=== PATIENT | female | born 1965 | race Caucasian/White ===

== ENCOUNTER 2018-10-18 08:00 | Day surgery (SDC) | payer OTHER ==
[~2018-10-18] VITALS: Ht 167.6 cm; Wt 90.3 kg
[~2018-10-18 08:00] MED LIST: CLARITIN10 MG PO; CYCLOBENZAPRINE10 MG PO; LISINOPRIL10 MG PO; NAPROSYN500 MG PO; PRILOSEC40 MG PO; SYNTHROID50 MCG PO
--- NOTE | 2018-10-18 08:16 | NUR ---
PT IS SOFT-SPOKEN, ALERT AND WILL BE JOINED BY HER SOON. PT THANKED ME FOR COMING IN, I EXTENDED A BLESSING. WILL FOLLOW NEEDED
--- NOTE | 2018-10-18 10:50 | NUR ---
10/18/18 1050 Belkis Tapia 1037 PT ARRIVED IN PACU SLEEPY WITH NO C/O'S. BUTTON AT END OF NOSE WITH SCANT DRAINAGE, DRIP PAD CDI. 1045 OXYGEN REMOVED. 94-96% ON 6L BLOW BY VIA MASK. ANESTHESIA AT BEDSIDE GIVING METOPROLOL FOR ELEVATED BP.
--- NOTE | 2018-10-18 11:16 | NUR ---
1110 PT BACK TO ROOM FROM PACU DENIES PAIN OR NAUSEA. PT TAKING SMALL SIPS OF WATER TOLERATES WELL.
[2018-10-18] MEDS ORDERED: KEFLEX500 MG PO ×2 (12:32→12:33)
[2018-10-18] MEDS ORDERED: NORCO 5-325 TA1 EACH PO (12:33)
--- NOTE | 2018-10-18 12:58 | NUR ---
1235) PATIENT ABLE TO WALK TO BATHROOM AND URINATE , WALK BACK AND GET SRESSED WITHOUT TROUBLE. NO BLEEDING NORED.
--- NOTE | 2018-10-18 15:48 | OR ---
[facility] [address], [place] [address] Signed DATE OF OPERATION: 10/18/2018 SURGEON: Jaylan Mercado MD PREOPERATIVE DIAGNOSES: Septal deformity and inferior turbinate hypertrophy. POSTOPERATIVE DIAGNOSES: Septal deformity and inferior turbinate hypertrophy. PROCEDURE PERFORMED: Septoplasty cautery, bilateral inferior turbinates. ANESTHESIA: General LMA; Elia KEMP. PREOPERATIVE HISTORY: Gladys is a 53-year-old lady with a long history of nasal obstruction, allergy symptoms, drainage, snoring, septal deformity, and inferior turbinate hypertrophy identified in the office. This has been unresponsive to nasal steroid sprays, clear antihistamines, decongestants, etc. She was taken to the operating room for the above-mentioned procedures. PROCEDURE AND FINDINGS: After informed consent, the patient was taken to the operating room, placed in supine position where general LMA anesthesia was induced. The patient and procedure were verified. The patient received preoperative intranasal oxymetazoline and intravenous Ancef. Headlight speculum exam of the nasal cavity showed a significant septal deformity on the left with a large spur inferiorly impinging on the inferior turbinate extending back posteriorly. The septal mucosa was injected with 1% lidocaine with epi. Mucosa elevated off the deviated septal bone and cartilage in this deviation was removed with the Edwina. Airway was markedly improved in this manner. The inferior turbinates were then cauterized with a long handle needle point cautery starting on the right inferior turbinate, multiple passes, transmucosal, on the medial and inferior surface extending anteriorly all the way back posteriorly. Excellent decongestion and shrinkage of the turbinate were obtained in this manner. Same procedure on the left inferior turbinate. Bleeding was controlled. Packing was placed. Trimmed Merocel equal amount on each side, coated with Neosporin tied anteriorly over a pad. The pharynx was suctioned clear of blood secretions. The patient was then Electronically Signed By: JAYLAN MERCADO MD 10/18/18 1548 PATIENT NAME: MARIE TALBERT XIMENA OPERATIVE REPORT DATE OF : 61 REPORT #: [id number] PHYSICIAN: JAYLAN MERCADO MD PCP: KELVIN CHAMBESR PAC REPORT IS CONFIDENTIAL AND NOT TO BE RELEASED WITHOUT AUTHORIZATION [address] [place], [place] [address] Signed awakened, extubated, transported to recovery room in good condition. No complications. BLOOD LOSS: Minimal. SPECIMEN: No specimen. DRAINS: No drains. Packing one piece of Merocel each nostril. Jaylan Mercado MD GC/MODL /[id number] Copies: ~ Electronically Signed By: JAYLAN MERCADO MD 10/18/18 1548 PATIENT NAME: MARIE TALBERT OPERATIVE REPORT DATE OF : 61 REPORT #: [id number] PHYSICIAN: JAYLAN MERCADO MD PCP: KELVIN CHAMBERS PAC REPORT IS CONFIDENTIAL AND NOT TO BE RELEASED WITHOUT AUTHORIZATION
== END 2018-10-18 12:35 | disposition home or self-care (01) ==
LOC: DS 08:00 → OPS 08:00 → DS 09:45 → OPS 09:45
PROVIDERS: Otolaryngology
PROC: 09SM0ZZ Reposition Nasal Septum, Open Approach (ICD-10-PCS; principal; 2018-10-18 09:45)
PROC: 095L7ZZ Destruction of Nasal Turbinate, Via Natural or Artificial Opening (ICD-10-PCS; 2018-10-18 09:45)
DX: J34.2 Deviated nasal septum (principal); J34.3 Hypertrophy of nasal turbinates; K21.9 Gastro-esophageal reflux disease without esophagitis; I10 Essential (primary) hypertension; F41.9 Anxiety disorder, unspecified; H54.7 Unspecified visual loss; Z79.899 Other long term (current) drug therapy
CPT/HCPCS: 00160; J0330; J0690; J1100; J1885; J2250; J2405; J2704; J2765; J3010; J7120

== ENCOUNTER 2023-03-09 07:50 | Day surgery (SDC) | payer OTHER | END 2023-03-09 12:00 | disposition home or self-care (01) | LOC: DS 07:50 | PROC: 099600Z Drainage of Left Middle Ear with Drainage Device, Open Approach (ICD-10-PCS; principal; 2023-03-09) | DX: H90.2 Conductive hearing loss, unspecified (principal); H65.92 Unspecified nonsuppurative otitis media, left ear; E03.9 Hypothyroidism, unspecified; I10 Essential (primary) hypertension ==

== ENCOUNTER 2023-05-21 08:15 | Day surgery (SDC) | payer OTHER ==
[~2023-05-21] VITALS: Ht 167.6 cm; Wt 98.6 kg
[~2023-05-21 08:15] MED LIST changes: +COLESTID1 GM PO; +KEFLEX500 MG PO; +NORCO 5-325 TA1 EACH PO
[2023-05-21 08:28] VITALS: BP 154/84
--- NOTE | 2023-05-21 10:22 | NUR ---
05/21/23 1022 Isadora Lund 1011- PT ARRIVES TO PACU, LEFT LATERAL POSITION. LR INFUSING TO RH IV, O2 AT 2L PER NC. PT REACTIVE AND OPENS EYES BUT FALLS BACK TO SLEEP QUICKLY. DENIES NAUSEA, REPORTS ABD PRESSURE. ABD ROUND, FIRM, ENCOURAGED TO REST AND PASS GAS. ALL MONITORS IN PLACE.
[2023-05-21 11:07] VITALS: BP 121/55
--- NOTE | 2023-05-24 15:08 | OR ---
[facility] [address] [place], [place] [address] Signed DATE OF OPERATION: 05/21/2023 SURGEON: Arpit Sheppard MD PREOPERATIVE DIAGNOSES: 1. Intractable persistent worsening diarrhea. 2. Known acalculous cholecystitis. 3. Resolving upper respiratory infection. POSTOPERATIVE DIAGNOSIS: Normal-appearing colon and ileum except for two very small polyps (cecum and left colon). PROCEDURES: 1. Total colonoscopy to cecum with intubation of ileum and biopsy of ileum, cecum, transverse colon, left colon, sigmoid, and rectum. 2. Excision of small polyps x2. ANESTHESIA: Intravenous sedation, fentanyl 100 mcg and Versed 7 mg. INDICATIONS FOR THE PROCEDURE: This 57-year-old woman is a patient of Kelvin Chambers and has been bothered by persistent and even worsening diarrhea over the past number of months. She was empirically treated with colestipol with some benefit, but not complete resolution. She additionally has rather typical biliary colic symptoms. Her evaluation shows normal gallbladder and CCK-HIDA test showed essentially no ejection fraction. She has had an upper respiratory infection over the past week and a half, which is now resolving; she was treated with Zithromax Z-Genaro by me, which is markedly improving her symptoms currently. It is anticipated to undergo cholecystectomy in the near future for acalculous cholecystitis. As regard to diarrhea, which surely would not be improved by cholecystectomy and maybe even worsened by it, I have recommended colonoscopy. She did undergo colonoscopy in 2017, which was normal. She has no family history of colon cancer. Assessment for possible colitis, neoplasm, or occult colitis has been considered, and on that basis she is here today for colonoscopy. The risk of bleeding, infection, perforation, and other unforeseen complications was reviewed with her. She understands and wished to proceed. FINDINGS: The prep was excellent. Complete colonoscopy was undertaken of the cecum. Full Electronically Signed By: ARPIT SHEPPARD MD 05/21/23 1150 Electronically Signed By: ARPIT SHEPPARD MD 05/25/23 2110 PATIENT NAME: MARIE TALBERT OPERATIVE REPORT DATE OF : 61 REPORT #: [id number] PHYSICIAN: ARPIT SHEPPARD MD PCP: KELVIN CHAMBERS PAC REPORT IS CONFIDENTIAL AND NOT TO BE RELEASED WITHOUT AUTHORIZATION [facility] [address] [place], [place] [address] Signed intubation of the ileum was accomplished as well. The ileum appeared normal. The biopsies were obtained. The remaining colon was normal except for two very small polyps, one in the cecum and another in the left colon, both excised with cold morcellation technique. Biopsies were taken throughout to assess for occult colitis as there is certainly no overt colitis and certainly no diverticular problems. DESCRIPTION OF PROCEDURE: The patient was brought to the endoscopy suite and placed in lateral decubitus position given intravenous sedation to the point of slurred speech and nystagmus. Digital rectal examination was normal. An Olympus video colonoscope was passed into the rectum and manipulated throughout the colon noting a very good prep. The scope was ultimately advanced to the cecum. Biopsies were taken of the cecum and additional evaluation showed a very small polyp there, which was excised with cold morcellation technique as well. With various manipulations of the scope, the ileocecal valve was entered and the terminal ileum well evaluated for at least 5+ cm. Mucosa appeared normal without ulcerations or other abnormality. Biopsies were obtained to assure this. Scope was withdrawn and passage upon withdrawal of scope throughout the colon allowed for random biopsies including the cecum, transverse colon, left colon, sigmoid, and rectum. Additionally noted was a very small polyp of the proximal descending colon, which was excised with cold morcellation technique. Retroflexed view was normal. She was taken to the recovery room in good condition. CONCLUDING DIAGNOSES: 1. No overt signs of colitis or ileitis. 2. Two small polyps, not related to her diarrhea problem. PLAN: We are planning for cholecystectomy next week. She will finish Zithromax Z-Genaro second course regarding her upper respiratory infection, which is now resolving well, and we will also prescribe empirically loperamide 2 mg tablets three tablets p.o. b.i.d. pending results of biopsies of the colon. Arpit Sheppard MD /[facility] [place] [place] /[id number] Electronically Signed By: ARPIT SHEPPARD MD 05/21/23 1150 Electronically Signed By: ARPIT SHEPPARD MD 05/25/23 2110 PATIENT NAME: MARIE TALBERT OPERATIVE REPORT DATE OF : 61 REPORT #: [id number] PHYSICIAN: ARPIT SHEPPARD MD PCP: KELVIN CHAMBERS PAC REPORT IS CONFIDENTIAL AND NOT TO BE RELEASED WITHOUT AUTHORIZATION [address] [address] Signed cc: AUGIE Trevino Copies: ~ Electronically Signed By: ARPIT SHEPPARD MD 05/21/23 1150 Electronically Signed By: ARPIT SHEPPARD MD 05/25/23 2110 PATIENT NAME: MARIE TALBERT XIMENA OPERATIVE REPORT DATE OF : 61 REPORT #: [id number] PHYSICIAN: ARPIT SHEPPARD MD PCP: KELVIN CHAMBERS PAC REPORT IS CONFIDENTIAL AND NOT TO BE RELEASED WITHOUT AUTHORIZATION
--- NOTE | 2023-05-25 10:12 | PATH ---
[facility] [address] [facility] [place], [place] [address] Signed SPECIMEN(S): A CECUM BIOPSY SPECIMEN(S): B CECUM POLYP SPECIMEN(S): C TERMINAL ILEUM BIOPSY SPECIMEN(S): D TRANSVERSE BIOPSY SPECIMEN(S): E DESCENDING POLYP SPECIMEN(S): F SIGMOID BIOPSY SPECIMEN(S): G RECTUM BIOPSY SPECIMEN SOURCE: A. CECUM BIOPSY B. CECUM POLYP C. TERMINAL ILEUM BIOPSY D. TRANSVERSE BIOPSY E. DESCENDING POLYP F. SIGMOID BIOPSY G. RECTUM BIOPSY CLINICAL HISTORY: Diarrhea. Two small polyps. FINAL PATHOLOGIC DIAGNOSIS: A. Cecum, biopsy: - Colonic mucosa with no significant pathologic changes B. Cecum, polypectomy: - Tubular adenoma C. Terminal ileum, biopsy: - Small bowel mucosa with focal active enteritis D. Colon, transverse, biopsy: - Colonic mucosa with no significant pathologic changes E. Colon, descending, polypectomy: - Colonic mucosa with no significant pathologic changes F. Colon, sigmoid, biopsy: - Colonic mucosa with no significant pathologic changes G. Rectum, biopsy: - Nondiagnostic; no specimen submitted, see gross description BRP MICROSCOPIC EXAMINATION: Histologic sections of all submitted blocks are examined by light microscopy. These findings, together with the gross examination, support the pathologic diagnosis. PATIENT NAME: MARIE JULES PATHOLOGY DATE OF : 61 REPORT #: [id number] PHYSICIAN: CONCEPCION DALTON PCP: KELVIN CHAMBERS PAC REPORT IS CONFIDENTIAL AND NOT TO BE RELEASED WITHOUT AUTHORIZATION [facility] [address] [place], [place] [address] Signed GROSS DESCRIPTION: A. The specimen, labeled and designated "Neal Jules, " and designated on the requisition "colon, cecum biopsy," is received in formalin and consists of two penaloza soft tissue fragments measuring 0.3 to 0.4 cm, both specimens are submitted entirely in (A1). B. The specimen, labeled and designated "Neal Jules, " and designated on the requisition "colon, cecum polypectomy," is received in formalin and consists of one penaloza soft tissue fragment measuring 0.5 cm, the specimen is submitted entirely in (B1). C. The specimen, labeled and designated "Neal Jules, " and designated on the requisition "ileum, terminal ileum biopsy," is received in formalin and consists of two penaloza soft tissue fragments measuring 0.2 to 0.3 cm, both specimens are submitted entirely in (C1). D. The specimen, labeled and designated "Neal Jules, " and designated on the requisition "colon, transverse biopsy," is received in formalin and consists of one penaloza soft tissue fragment measuring 0.4 cm, the specimen is submitted entirely in (D1). E. The specimen, labeled and designated "Neal Jules, " and designated on the requisition "colon, descending/left polypectomy," is received in formalin and consists of two penaloza soft tissue fragments measuring 0.3 cm, both specimens are submitted entirely in (E1). F. The specimen, labeled and designated "Jorge A, Neal, " and designated on the requisition "colon, sigmoid biopsy," is received in formalin and consists of two penaloza soft tissue fragments measuring 0.2 to 0.3 cm, both specimens are submitted entirely in (F1). G. The specimen, labeled and designated "Jorge A Neal, " and designated on the requisition "colon, rectum biopsy," is received in formalin and consists of formalin with no tissue or specimens, verified with providers staff/office per Laura 05-24-2023. MMA (under the direct supervision of a pathologist) The Gross Description was prepared using a voice recognition system. The report was reviewed for accuracy; however, sound-alike word errors, addition and/or deletions may occur. If there is any question about this report, please contact Client Services. ADDITIONAL NOTES: Immunohistochemical and/or in situ hybridization studies if performed in this case included appropriate positive controls that reacted as expected. This test was developed and its performance PATIENT NAME: MARIE JULES PATHOLOGY DATE OF : 61 REPORT #: [id number] PHYSICIAN: CONCEPCION DALTON PCP: KELVIN CHAMBERS PAC REPORT IS CONFIDENTIAL AND NOT TO BE RELEASED WITHOUT AUTHORIZATION [address] [address] Signed characteristics determined by [facility]. It has not been cleared or approved by the U.S. Food and Drug Administration. The FDA has determined that such clearance or approval is not necessary. This test is used for clinical purposes. It should not be regarded as investigational or for research. [facility] is certified under the Clinical Laboratory Improvement Amendments of 1988 (CLIA) as qualified to perform high complexity clinical laboratory testing. PERFORMING LABORATORY: Technical component was performed by [facility], [address] [place] [id number] (CLIA# [id number]). Professional interpretation was performed by [employer] [facility] - [facility], [address] [place] [id number] (CLIA#: [id number]). Diagnostician: Calixto Blake MD Pathologist Electronically Signed 05/25/2023 Copies: ~ PATIENT NAME: MARIE JULES PATHOLOGY DATE OF : 61 REPORT #: [id number] PHYSICIAN: CONCEPCION DALTON PCP: KELVIN CHAMBERS PAC REPORT IS CONFIDENTIAL AND NOT TO BE RELEASED WITHOUT AUTHORIZATION
== END 2023-05-21 11:20 | disposition home or self-care (01) ==
LOC: OPS 08:15 → DS 08:15 → OPS 09:30
PROVIDERS: ATTEND Surgery
PROC: 0DBL8ZX Excision of Transverse Colon, Via Natural or Artificial Opening Endoscopic, Diagnostic (ICD-10-PCS; 2023-05-21)
PROC: 0DBN8ZX Excision of Sigmoid Colon, Via Natural or Artificial Opening Endoscopic, Diagnostic (ICD-10-PCS; 2023-05-21)
PROC: 0DBP8ZX Excision of Rectum, Via Natural or Artificial Opening Endoscopic, Diagnostic (ICD-10-PCS; 2023-05-21)
PROC: 0DBG8ZX Excision of Left Large Intestine, Via Natural or Artificial Opening Endoscopic, Diagnostic (ICD-10-PCS; 2023-05-21)
PROC: 0DBH8ZX Excision of Cecum, Via Natural or Artificial Opening Endoscopic, Diagnostic (ICD-10-PCS; principal; 2023-05-21 09:30)
DX: K52.9 Noninfective gastroenteritis and colitis, unspecified (principal); D12.0 Benign neoplasm of cecum; K81.1 Chronic cholecystitis; Z90.711 Acquired absence of uterus with remaining cervical stump
CPT/HCPCS: 99153; G0500; J2250; J3010; J7121

== ENCOUNTER 2023-05-27 07:45 | Day surgery (SDC) | payer OTHER ==
[2023-05-20 09:43] VITALS: BP 134/79
[~2023-05-27] VITALS: Ht 167.6 cm; Wt 98.6 kg
[~2023-05-27 07:45] MED LIST changes: +CEFAZOLIN SODIUM 2 GM/20 ML SYR IV SCH; +HEParin SOD (PORCINE) 5,000 UNIT/0.5 ML SYR SUB-Q SCH; +IBLOOD GLUCOSE TEST STRIP 1 EA TEST VI PRN; +LACTATED RINGER'S 1,000 ML IV SCH; +LIDOCAINE HCL 1% 5 ML SDV INJ ONE
[2023-05-27 08:05] VITALS: BP 132/70
--- NOTE | 2023-05-27 08:19 | NUR ---
INFORMED OF WAITSTATES OK . AT BS.
[2023-05-27] MEDS ORDERED: SODIUM CHLORIDE 0.9% 40 ML IV ONE ×2 (09:06→09:25)
[2023-05-27] MEDS ORDERED: iopamidoL 30 ML VIAL ONE (09:06)
[2023-05-27] MEDS ORDERED: fentaNYL citrate 100 MCG/2 ML VIAL ONE (09:22)
[2023-05-27] MEDS ORDERED: KETAMINE in NS 50 MG/5 ML SYR ONE (09:22)
--- NOTE | 2023-05-27 09:24 | NUR ---
can vacuum tester in to talk with pt and dr iniguez.
[2023-05-27] MEDS ORDERED: DEXAMETHASONE SOD PHOS 4 MG/ML VIAL ONE (09:25)
[2023-05-27] MEDS ORDERED: ACETAMINOPHEN 1,000 MG/100 ML VIAL ONE (09:25)
[2023-05-27] MEDS ORDERED: MAGNESIUM SULFATE 1 GM/2 ML VIAL ONE (09:25)
[2023-05-27] MEDS ORDERED: propofoL 200 MG/20 ML VIAL ONE (09:25)
[2023-05-27] MEDS ORDERED: ROCURONIUM BROMIDE 50 MG/5 ML SYR ONE (09:25)
[2023-05-27] MEDS ORDERED: dexmedeTOMIDine HCl 200 MCG/2 ML VIAL ONE (09:25)
[2023-05-27] MEDS ORDERED: LIDOCAINE HCL 2% 5 ML SDV ONE (09:25)
[2023-05-27] MEDS ORDERED: ondansetron HCL 4 MG/2 ML VIAL ONE (09:25)
[2023-05-27] MEDS ORDERED: ePHEDrine sulfate 50 MG/ML AMP ONE (10:27)
[2023-05-27] MEDS ORDERED: SUGAMMADEX SODIUM 200 MG/2 ML ML ONE (10:30)
[2023-05-27] MEDS ORDERED: IBLOOD GLUCOSE TEST STRIP 1 EA TEST VI PRN (10:45)
[2023-05-27] MEDS ORDERED: droPERidol 5 MG/2 ML VIAL IV PRN (10:45)
[2023-05-27] MEDS ORDERED: ondansetron HCL 4 MG/2 ML VIAL IV PRN ×2 (10:45→11:15)
[2023-05-27] MEDS ORDERED: fentaNYL citrate 100 MCG/2 ML VIAL IV PRN (10:45)
[2023-05-27] MEDS ORDERED: KETOROLAC TROMETHAMINE 30 MG/ML VIAL IV PRN (10:45)
[2023-05-27] MEDS ORDERED: NALOXONE HCL 0.4 MG SYR IV PRN (10:45)
[2023-05-27] MEDS ORDERED: IBUPROFEN600 MG PO (11:15)
[2023-05-27] MEDS ORDERED: OXYCODONE/APAP 7.5/325 TAB PO PRN (11:15)
[2023-05-27] MEDS ORDERED: ACETAMINOPHEN 500 MG TAB PO PRN (11:15)
[2023-05-27] MEDS ORDERED: OXYCODON-ACETA1 EAC2 PO (11:15)
[2023-05-27] MEDS ORDERED: PROCHLORPERAZINE EDISYLATE 10 MG/2 ML VIAL IV PRN (11:15)
[2023-05-27] MEDS ORDERED: IBUPROFEN 600 MG TAB PO PRN (11:15)
[2023-05-27] MEDS ORDERED: ACETAMINOPHEN500 MG PO (11:15)
[2023-05-27] MEDS ORDERED: HYDROmorphone HCL 1 MG/ML SYR IV PRN (11:30)
[2023-05-27 11:57] VITALS: BP 119/56
--- NOTE | 2023-05-27 12:04 | NUR ---
HAS TAKEN WATER AND CRACKERS AND REQUESTED 2 PAIN PILLS. GIVEN RATES PAIN 5/10
--- NOTE | 2023-05-27 12:46 | NUR ---
05/27/23 1246 KevonIsadora Sara 1059- PT ARRIVES TO PACU, SEMI COLEMAN POSITION. HER ARMS PULLED UP TO HEAD, O2 AT 8L PER MASK. LR INFUSING TO RH IV. PT IS REACTIVE, MOANING AND GRUNTING IN PAIN. REPORTS "A LOT" OF PAIN. ABD IS ROUND, DISTENDED, AND FIRM. STERI STRIPS IN PLACE. BREATHING EVEN AND NON LABORED. ALL MONITORS IN PLACE.
[2023-05-27 12:54] VITALS: BP 100/61
--- NOTE | 2023-05-27 12:56 | NUR ---
CONTS TO DISTENDED ABD FIRM. ENC TO AMB.
--- NOTE | 2023-05-27 13:11 | NUR ---
AMB HALLWAY. VOIDS 200MLS DARK YELLOW URINE. RETURNED TO BED GETTING DRESSED. ABD STILL FIRM DR SHEPPARD INFORMED OK TO DC HOME.
--- NOTE | 2023-05-27 13:22 | NUR ---
ON RETURN TO ROOM SAT 93% ON ROOM AIR.
--- NOTE | 2023-06-01 10:00 | OR ---
[facility] [address] [place], [place] [address] Signed DATE OF OPERATION: 05/27/2023 SURGEON: Arpit Sheppard MD PREOPERATIVE DIAGNOSES: 1. Chronic acalculous cholecystitis. 2. Morbid obesity. POSTOPERATIVE DIAGNOSES: 1. Chronic calculous cholecystitis with profound cholesterolosis. 2. Morbid obesity. 3. Extensive adhesions to gallbladder. PROCEDURES: 1. Laparoscopic cholecystectomy, prolonged, complicated and difficult. 2. Surgeon-directed fluoroscopy. ANESTHESIA: General endotracheal, Raoul Benítez, [employer] and local 12 mL of 0.25% Marcaine with epinephrine. INDICATION: This 57-year-old morbidly obese white woman is a patient of Kelvin Chambers. She has had a rather typical biliary colic symptoms. A gallbladder ultrasound was negative and a CCK-HIDA test was performed which showed essentially no ejection fraction from the gallbladder. There was considered to be a 5 mm gallbladder wall polyp on the ultrasound, which nearly always represents a stone rather than a polyp in fact. The patient additionally has had diarrhea for the preceding year and recent colonoscopy was performed which did show focal acute inflammation of the terminal ileum for which additional imaging is planned. She is now to undergo cholecystectomy for chronic acalculous cholecystitis. She understands the risk of bleeding, infection, bile duct injury, need for open procedure and need for other indicated procedures. Understanding that she wished to proceed. FINDINGS: The gallbladder was chronically inflamed and densely adherent to underlying omentum. A fair amount of time was taken freeing the gallbladder for its exposure. The gallbladder itself was friable and chronically inflamed. The gallbladder once excised confirmed profound cholesterolosis of mucosa and multiple bits of stone material and an adherent gallstone that was yellow and mulberry in configuration. The cholangiogram was normal. Electronically Signed By: ARPIT SHEPPARD MD 06/01/23 1000 PATIENT NAME: MARIE TALBERT OPERATIVE REPORT DATE OF : 61 REPORT #: [id number] PHYSICIAN: ARPIT SHEPPARD MD PCP: KELVIN CHAMBERS PAC REPORT IS CONFIDENTIAL AND NOT TO BE RELEASED WITHOUT AUTHORIZATION [facility] [address] [place], [place] [address] Signed There were no other findings of concern. DESCRIPTION OF PROCEDURE: The patient was brought to the operating room, given a general endotracheal anesthetic. Preoperative antibiotic Ancef was given and sequential compression device stockings were applied. The abdomen was prepared with a chlorhexidine solution and draped sterilely. An infraumbilical incision was made and using an open Noemí cannula technique pneumoperitoneum was achieved to a level of 14 mmHg of carbon dioxide gas. Intra-abdominal inspection showed no sign of ascites or carcinomatosis. The gallbladder was somewhat obscured due to omental adhesions. The liver was reasonably normal with only mild fatty infiltration. Three additional trocars were placed in usual configuration in subxiphoid, right acromioclavicular and right anterior axillary line. Gallbladder was elevated and found to be densely adherent with omental adhesions. Using blunt electrocautery dissection. Extensive adhesiolysis was undertaken to free the omentum from the gallbladder itself. Ultimately, the gallbladder was entirely freed and showed chronic inflammatory changes and thickening. The gallbladder was elevated cephalad and retracted laterally. Using blunt and electrocautery dissection, the triangle of Calot was dissected free. A relatively generous inflammatory lymph node was noted and left in situ, ultimately identifying well the cystic duct. A small rent was made in the superior aspect of the gallbladder with spillage of bile but no spillage of stone material. This area was secured with an Endoloop. Further definition of the cystic duct was undertaken and a clip was applied across gallbladder cystic duct junction and a transverse choledochotomy made in the cystic duct. Egress of somewhat mucoid bile was noted. Using the Slaughter type cholangiocatheter system, intraoperative cholangiography was undertaken showing free flow of contrast in biliary tree with prompt emptying into the duodenum. There was no sign of filling defect or other abnormality. The catheter was removed and the cystic duct was triply clipped and divided. The gallbladder was then dissected free in a retrograde fashion leaving the thickened pericholecystic lymph node and cystic arterial branches in situ. The gallbladder was ultimately excised and placed in an endobag and extracted through the infraumbilical port site without problem, opened on the back table and found to have profound cholesterolosis, bits of stone material adherent to the gallbladder wall and chronic inflammatory change as expected. Irrigation was undertaken in the subhepatic space showing no sign of bile leak, bleeding or other problems. Excess irrigation fluid was suctioned free. The trocars were removed under direct visualization showing no sign of bleeding. The infraumbilical fascial incision was reapproximated with interrupted 0 Vicryl suture. All wounds were copiously irrigated with saline solution. Skin closed with interrupted 3-0 Vicryl after application of 12 mL of 0.25% Marcaine with epinephrine. Steri-Strips were applied. She was ultimately extubated and transferred to the recovery room in good condition having suffered no complication. Sponge, needle, and instrument counts were reported as correct x3. Electronically Signed By: ARPIT SHEPPARD MD 06/01/23 1000 PATIENT NAME: MARIE TALBERT XIMENA OPERATIVE REPORT DATE OF : 61 REPORT #: [id number] PHYSICIAN: ARPIT SHEPPARD MD PCP: KELVIN CHAMBERS PAC REPORT IS CONFIDENTIAL AND NOT TO BE RELEASED WITHOUT AUTHORIZATION [address] [place] [address] Signed MD SAMIR Enrique/[facility] /[id number] cc: AUGIE Trevino Copies: ~ Electronically Signed By: ARPIT SHEPPARD MD 06/01/23 1000 PATIENT NAME: MARIE TALBERT OPERATIVE REPORT DATE OF : 61 REPORT #: [id number] PHYSICIAN: ARPIT SHEPPARD MD PCP: KELVIN CHAMBERS PAC REPORT IS CONFIDENTIAL AND NOT TO BE RELEASED WITHOUT AUTHORIZATION
--- NOTE | 2023-06-01 11:21 | PATH ---
[facility] [address], [place] [address] Signed SPECIMEN(S): A GALLBLADDER AND STONES SPECIMEN SOURCE: A. GALLBLADDER AND STONES CLINICAL HISTORY: Chronic cholecystitis. FINAL PATHOLOGIC DIAGNOSIS: Gallbladder, cholecystectomy: - Chronic cholecystitis BRP MICROSCOPIC EXAMINATION: Histologic sections of all submitted blocks are examined by light microscopy. These findings, together with the gross examination, support the pathologic diagnosis. GROSS DESCRIPTION: The specimen, labeled and designated "Neal Jules " and designated on the requisition "gallbladder and stones," is received in formalin and consists of Specimen: Previously opened gallbladder. Dimensions: 7.4 x 4.6 x 1.0 cm. Serosa: Blue-green and smooth. Cystic Duct: Inked, probed patent. Calculi: Not grossly identified. Mucosa: Green and velvety with yellow polypoid soft tissue fragments. Wall thickness: 0.9 cm. Lymph node: No pericystic lymph nodes are grossly identified. Additional: None. Rn Baby sections are submitted in (A1). FB (under the direct supervision of a pathologist) The Gross Description was prepared using a voice recognition system. The report was reviewed for accuracy; however, sound-alike word errors, addition and/or deletions may occur. If there is any question about this report, please contact Client Services. ADDITIONAL NOTES: Immunohistochemical and/or in situ hybridization studies if performed in this case included appropriate positive controls that reacted as expected. This test was developed and its performance PATIENT NAME: MARIE JULES [facility] PATHOLOGY DATE OF : 61 REPORT #: [id number] PHYSICIAN: CONCEPCION DALTON PCP: KELVIN CHAMBERS PAC REPORT IS CONFIDENTIAL AND NOT TO BE RELEASED WITHOUT AUTHORIZATION [facility] [address] [facility] [place] [address] Signed characteristics determined by [facility]. It has not been cleared or approved by the U.S. Food and Drug Administration. The FDA has determined that such clearance or approval is not necessary. This test is used for clinical purposes. It should not be regarded as investigational or for research. [facility] is certified under the Clinical Laboratory Improvement Amendments of 1988 (CLIA) as qualified to perform high complexity clinical laboratory testing. PERFORMING LABORATORY: Technical component was performed by [facility], [address] [place] [id number] (CLIA# [id number]). Professional interpretation was performed by [facility], [address] [place] [address] (CLIA#:[id number]). Diagnostician: Calixto Blake MD Pathologist Electronically Signed 06/01/2023 Copies: ~ PATIENT NAME: MARIE JULES PATHOLOGY DATE OF : 61 REPORT #: [id number] PHYSICIAN: CONCEPCION DALTON PCP: KELIVN CHAMBERS PAC REPORT IS CONFIDENTIAL AND NOT TO BE RELEASED WITHOUT AUTHORIZATION
== END 2023-05-27 13:15 | disposition home or self-care (01) ==
LOC: DS 07:45
PROVIDERS: ATTEND Surgery
PROC: 0FT44ZZ Resection of Gallbladder, Percutaneous Endoscopic Approach (ICD-10-PCS; 2023-05-27)
PROC: 0DNU4ZZ Release Omentum, Percutaneous Endoscopic Approach (ICD-10-PCS; principal; 2023-05-27 09:30)
DX: K80.10 Calculus of gallbladder with chronic cholecystitis without obstruction (principal); K66.0 Peritoneal adhesions (postprocedural) (postinfection); E66.01 Morbid (severe) obesity due to excess calories; J06.9 Acute upper respiratory infection, unspecified; I10 Essential (primary) hypertension; E03.9 Hypothyroidism, unspecified; Z90.711 Acquired absence of uterus with remaining cervical stump; Z79.890 Hormone replacement therapy; Z79.899 Other long term (current) drug therapy
CPT/HCPCS: 00790; 74300; J0131; J0690; J1100; J1170; J1644; J1885; J2001; J2405; J2704; J3010; J3475; J3490; J7121; Q9967

== ENCOUNTER 2025-04-07 20:25 | Emergency (ER) | payer OTHER ==
[~2025-04-07] VITALS: Ht 167.6 cm; Wt 97.1 kg
[~2025-04-07 20:25] MED LIST changes: +ACETAMINOPHEN500 MG PO; -CEFAZOLIN SODIUM 2 GM/20 ML SYR IV SCH; -HEParin SOD (PORCINE) 5,000 UNIT/0.5 ML SYR SUB-Q SCH; -IBLOOD GLUCOSE TEST STRIP 1 EA TEST VI PRN; +IBUPROFEN600 MG PO; -LACTATED RINGER'S 1,000 ML IV SCH; -LIDOCAINE HCL 1% 5 ML SDV INJ ONE; +OXYCODON-ACETA1 EAC2 PO
[2025-04-07 20:38] LABS: BASOPHILS 0.5 % (0.1-1.2); EOSINOPHILS 1.8 % (0.7-5.8); LYMPHOCYTES 37.2 % (19.3-51.7); MCH 29.5 PG (25.6-32.2); MCHC 32.0 g/dL (32.2-35.5); MCV 92.4 fL (79.4-94.8); MONOCYTES 11.8 % (4.7-12.5); NEUTROPHILS 48.0 % (34.0-71.1); RBC 5.01 M/uL (3.93-5.22)
[2025-04-07] MEDS ORDERED: LACTATED RINGER'S 1,000 ML IV ONE (20:45)
[2025-04-07] MEDS ORDERED: DIPHTH,PERTUSS(ACELL),TET VAC 0.5 ML SYRINGE IM ONE (20:45)
[2025-04-07 20:59] LABS: ALT (SGPT) 91.0 U/L (14-59); AST (SGOT) 71.0 U/L (15-37); GLOMERULAR FILTRATION RATE,EST 99.0 mL/min (>60); PROTEIN, TOTAL 7.4 g/dL (6.4-8.2); UREA NITROGEN 13.0 mg/dL (7-18)
[2025-04-07 21:00] LABS: ALCOHOL, MEDICAL 313.0 ng/dL (<3)
[2025-04-07 22:29] LABS: AMPHETAMINES, URINE NEGATIVE (NEGATIVE); BARBITURATES, URINE NEGATIVE (NEGATIVE); BENZODIAZEPINE, URINE NEGATIVE (NEGATIVE); CANNABINOID, URINE NEGATIVE (NEGATIVE); COCAINE, URINE NEGATIVE (NEGATIVE); ECSTASY, URINE NEGATIVE (NEGATIVE); FENTANYL, URINE NEGATIVE (NEGATIVE); METHADONE, URINE NEGATIVE (NEGATIVE); OPIATES, URINE NEGATIVE (NEGATIVE); OXYCODONE, URINE NEGATIVE (NEGATIVE); PHENCYCLIDINE, URINE NEGATIVE (NEGATIVE)
[2025-04-07] MEDS ORDERED: CYCLOBENZAPRINE10 MG PO (22:37)
[2025-04-07 23:30] VITALS: BP 132/81
== END 2025-04-07 23:15 | disposition home or self-care (01) ==
LOC: ED 20:25
PROVIDERS: Family Medicine
DX: S16.1XXA Strain of muscle, fascia and tendon at neck level, initial encounter (principal); Z87.891 Personal history of nicotine dependence; F10.129 Alcohol abuse with intoxication, unspecified; V89.2XXA Person injured in unspecified motor-vehicle accident, traffic, initial encounter
CPT/HCPCS: 36415; 70450; 72125; 80053; 80307; 85025; 90471; 90715; 96374; 99284-25; G0480; J2405; J7121